=== PATIENT | male | born 1955 | race Caucasian/White ===

== ENCOUNTER → 2017-01-29 | Outpatient (CLI) | payer OTHER | LOC: SBRMNEURO 20:00 | PROVIDERS: ATTEND Physician Assistant Medical | DX: G47.33 Obstructive sleep apnea (adult) (pediatric) (principal); G47.36 Sleep related hypoventilation in conditions classified elsewhere; G47.61 Periodic limb movement disorder ==

== ENCOUNTER → 2018-03-09 | Outpatient (CLI) | payer OTHER | LOC: SBRMNEURO 22:20 | PROVIDERS: ATTEND Physician Assistant Medical | DX: G47.33 Obstructive sleep apnea (adult) (pediatric) (principal); G47.61 Periodic limb movement disorder; G47.36 Sleep related hypoventilation in conditions classified elsewhere ==

== ENCOUNTER 2018-04-08 08:27 | Day surgery (SDC) | payer OTHER ==
[2018-04-08] MEDS ORDERED: LIDOCAINE 1% 2 ML INJ ID PRN (08:42)
[2018-04-08] MEDS ORDERED: LR 1,000 ML IV ONE (08:42)
--- NOTE | 2018-04-08 09:43 | PDGENHP ---
History & Physical Chief Complaint: Phx colon polyps, surveillence History of Present Illness: DM,Bipolar disorder, HTN, Fibromyalgia, alf use opiods, LAVERNE Relevant Physical Exam: Lungs clear. Cardiac Normal S1S2
--- NOTE | 2018-04-08 09:53 | PDANEPAE ---
ANE Past Medical History - Cardiovascular History Hx Hypertension: Yes Hx Arrhythmias: Yes Hx Chest Pain: No Hx Coronary Artery / Peripheral Vascular Disease: Yes Hx CHF / Valvular Disease: Yes Hx Palpitations: No Cardiovascular History Comment: FUNCTIONAL MURMUR. CHF MANAGED W/DIET LOW SALT - Pulmonary History Hx COPD: No Hx Asthma/Reactive Airway Disease: No Hx Recent Upper Respiratory Infection: No Hx Oxygen in Use at Home: No Hx Sleep Apnea: Yes Sleep Apnea Screening Result - Last Documented: Positive - Neurologic History Hx Cerebrovascular Accident: No Hx Seizures: No Hx Dementia: No - Endocrine History Hx Diabetes: Yes Obesity: moderate Endocrine History Comment: DM II. HYPOTHTROID - Renal History Hx Renal Disorders: No Renal History Comment: KIDNEY STONES - Liver History Hx Hepatic Disorders: Yes Hepatic History Comment: FATTY LIVER - Neurological & Psychiatric Hx Hx Neurological and Psychiatric Disorders: Yes Neurological / Psychiatric History Comment: BIPOLAR - Cancer History Hx Cancer: No - Congenital Disorder History Hx Congenital Disorders: No - GI History Hx Gastrointestinal Disorders: Yes Gastrointestinal History Comment: ACID STOMACH - Other Health History Other Health History: SKIN RASH. FIBROMYALGIA. CHRONIC PAIN PT - Chronic Pain History Chronic Pain: Yes (FEET,HANDS,SHOULDERS, NECK & UPPER BACK) - Surgical History Prior Surgeries: KNEE L SURGERY EXPLORATORY. TONSILLECTOMY. VASECTOMY. KIDNEY STONES REMOVED ANE Review of Systems Review of Systems: - Exercise capacity METS (RN): 3 METS ANE Patient History - Allergies Allergies/Adverse Reactions: No Known Allergies Allergy (Unverified 04/01/18 12:13) - Home Medications Home Medications: Allopurinol 04/01/18 [Last Taken 04/07/18 08:00] Aripiprazole 04/01/18 [Last Taken 04/07/18 23:00] Aspirin 04/01/18 [Last Taken 04/01/18] Bisacodyl 04/01/18 [Last Taken 04/07/18 23:00] Citalopram 04/01/18 [Last Taken 04/07/18 23:00] Cyclobenzaprine 04/01/18 [Last Taken 04/07/18 23:00] Famotidine 04/01/18 [Last Taken 04/03/18] Herbals/Supplements -Info Only 04/01/18 [Last Taken Unknown] Invokana 04/01/18 [Last Taken 04/07/18 08:00] Lamotrigine 100 tab PO 04/01/18 [Last Taken 04/07/18 23:00] Levothyroxine 0.1 tab PO DAILY 04/01/18 [Last Taken 04/07/18 23:00] Metformin HCl 500 tab PO QID 04/01/18 [Last Taken 04/07/18 23:00] [place] 5-325 Tablet 7.5 tab PO QID 04/01/18 [Last Taken 04/08/18 05:45] Oxycontin 40 tab PO BID 04/01/18 [Last Taken 04/08/18 05:45] Potassium Citrate 1,080 tab PO BID 04/01/18 [Last Taken 04/07/18] Simvastatin tab PO DAILY 04/01/18 [Last Taken 04/07/18 23:00] Verapamil 240 tab PO BID 04/01/18 [Last Taken 04/07/18 23:00] - NPO status NPO Since - Liquids (Date): 04/08/18 NPO Since - Liquids (Time): 05:30 NPO Since - Solids (Date): 04/06/18 NPO Since - Solids (Time): 09:00 - Smoking Hx Smoking Status: Never smoked ANE Labs/Vital Signs - Vital Signs Blood Pressure: 139/85 Heart Rate: 100 Respiratory Rate: 16 O2 Sat (%): 93 Height: 180.34 cm Weight: 111.13 kg ANE Physical Exam - Airway Neck exam: FROM Mallampati Score: Class 1 Mouth exam: normal dental/mouth exam - Pulmonary Pulmonary: no respiratory distress - Cardiovascular Cardiovascular: regular rate and rhythym - ASA Status ASA Status: III ANE Anesthesia Plan Anesthesia Plan: GA with mask
[2018-04-08] MEDS ORDERED: fentaNYL 100 MCG/2 ML INJ ONE (10:06)
[2018-04-08] MEDS ORDERED: PROPOFOL/EMULSION 500 MG/50 ML BOTTLE IV ONE (10:06)
--- NOTE | 2018-04-08 10:36 | GIREPORT ---
[facility] Surgical Services - Endoscopy Department Patient Name: Mauricio Farfan Procedure Date: 04/08/2018 9:47 AM Patient Type: Outpatient Attending MD/ ER Physician: Dony Weir MD Procedure: Colonoscopy Indications: High risk colon cancer surveillance: Personal history of colonic polyps Providers: Dony Weir MD Medicines: Propofol per Anesthesia Complications: No immediate complications. Description of Procedure: After obtaining informed consent, the scope was passed under direct vis ion. Throughout the procedure, the patient's blood pressure, pulse, and oxyg en saturations were monitored continuously. The Colonoscope with irrigatio n channel was introduced through the anus and advanced to the cecum, identified by appendiceal orifice and ileocecal valve. The colonoscopy was performed without difficulty. The patient tolerated the procedure well. The quality of the bowel preparation was fair. Moderate Sedation: Propofol per anesthesia. Findings: A 6 mm polyp was found in the cecum. The polyp was sessile. The polyp w as removed with a cold snare. Resection and retrieval were complete. Two sessile polyps were found in the transverse colon. The polyps were 3 to 4 mm in size. These polyps were removed with a cold biopsy forceps. Resection and retrieval were complete. The exam was otherwise without abnormality on direct and retroflexion v iews. Estimated Blood Loss: Estimated blood loss: none. Post Op Diagnosis: - Preparation of the colon was fair. - One 6 mm polyp in the cecum, removed with a cold snare. Resected and retrieved. - Two 3 to 4 mm polyps in the transverse colon, removed with a cold bio psy forceps. Resected and retrieved. - The examination was otherwise normal on direct and retroflexion views . Recommendation: - Patient has a contact number available for emergencies. The signs and symptoms of potential delayed complications were discussed with the pat ient. Return to normal activities tomorrow. Written discharge instructions we re provided to the patient. - Resume previous diet. - Continue present medications. - Await pathology results. - Repeat colonoscopy in 3 years for surveillance. - Thank you for allowing me to participate in the care of your patient. Attending Participation: I personally performed the entire procedure. Dony Weir MD Dony Weir MD 04/08/2018 10:35:43 AM This report has been signed electronicallyDony Weir MD Number of Addenda: 0 Note Initiated On: 04/08/2018 9:47 AM Total Procedure Duration Time 0 hours 13 minutes 52 seconds [email or web address]
[2018-04-08 11:19] VITALS: BP 149/96
== END 2018-04-08 11:30 | disposition home or self-care (01) ==
LOC: FSGY 08:27
PROVIDERS: ATTEND Internal Medicine Gastroenterology
DX: Z12.11 Encounter for screening for malignant neoplasm of colon (principal); Z86.010 Personal history of colon polyps; D12.0 Benign neoplasm of cecum; D12.3 Benign neoplasm of transverse colon; E11.9 Type 2 diabetes mellitus without complications; E03.9 Hypothyroidism, unspecified; F31.9 Bipolar disorder, unspecified; I10 Essential (primary) hypertension; M79.7 Fibromyalgia; Z79.891 Long term (current) use of opiate analgesic; G47.33 Obstructive sleep apnea (adult) (pediatric)
CPT/HCPCS: J2704; J3010